=== PATIENT | male | born 1970 | race Caucasian/White ===

== ENCOUNTER 2017-09-11 21:18 | Emergency (ER) | payer MEDICAID ==
[~2017-09-11] VITALS: Ht 180.3 cm; Wt 93.0 kg
[2017-09-11] MEDS ORDERED: HYDROMORPHONE 1 MG/1 ML DISP.SYRIN IM ONE (23:00)
[2017-09-11] MEDS ORDERED: PROMETHAZINE HCL 25 MG/1 ML VIAL IM ONE (23:00)
--- NOTE | 2017-09-11 23:14 | NUR ---
Patient discharged to home in stable conditon. Written and verbal after care instructions given. Patient verbalizes understanding of instructions.
[2017-09-11] MEDS ORDERED: HYDROMORPHONE 2 MG/1 ML DISP.SYRIN ONE (23:22)
[2017-09-11] MEDS ORDERED: PROMETHAZINE HCL 25 MG/1 ML VIAL ONE (23:22)
== END 2017-09-11 23:16 | disposition home or self-care (01) ==
LOC: ER 21:19
DX: M54.30 Sciatica, unspecified side (principal); F17.200 Nicotine dependence, unspecified, uncomplicated
CPT/HCPCS: A4663; J1170; J2550

== ENCOUNTER 2017-09-19 17:12 | Emergency (ER) | payer MEDICAID ==
[~2017-09-19] VITALS: Ht 180.3 cm; Wt 92.5 kg
[2017-09-19] MEDS ORDERED: IBUP-1957 PO (17:40)
[2017-09-19] MEDS ORDERED: HYDROCODONE/APAP 5-325MG TABLET PO ONE (18:45)
[2017-09-19] MEDS ORDERED: CYCLOBENZAPRINE HCL 10 MG TABLET PO ONE (18:45)
[2017-09-19] MEDS ORDERED: CYCLOBENZAPRINE HCL 10 MG TABLET ONE (19:00)
[2017-09-19] MEDS ORDERED: HYDROCODONE/APAP 5-325MG TABLET ONE (19:01)
--- NOTE | 2017-09-19 19:18 | NUR ---
Patient discharged to home in stable conditon. Written and verbal after care instructions given. Patient verbalizes understanding of instructions.
== END 2017-09-19 19:19 | disposition home or self-care (01) ==
LOC: ER 17:12
DX: S39.012A Strain of muscle, fascia and tendon of lower back, initial encounter (principal); F17.200 Nicotine dependence, unspecified, uncomplicated; X50.1XXA Overexertion from prolonged static or awkward postures, initial encounter; Y93.89 Activity, other specified; Y92.89 Other specified places as the place of occurrence of the external cause; Y99.8 Other external cause status
CPT/HCPCS: 72100; 99284; A4663